=== PATIENT | female | born 1960 | race Caucasian/White ===

== ENCOUNTER 2017-12-23 10:10 | Emergency (ER) | payer SELFPAY ==
[~2017-12-23] VITALS: Ht 157.5 cm; Wt 115.0 kg
[~2017-12-23 10:10] MED LIST: ACET-1600 PO; DIPH25CA61 PO
[2017-12-23 11:36] LABS: ANION GAP 8 mmol/L (5-15); CALCIUM 8.5 mg/dL (8.5-10.1); CHLORIDE 106 mmol/L (98-107); CREATININE 0.72 mg/dL (0.55-1.02)
[2017-12-23 11:37] LABS: ALBUMIN 3.3 g/dL (3.4-5.0)
[2017-12-23 11:40] LABS: BASOPHILS # (AUTO) 0.07 x10^3/uL (0-0.1); BASOPHILS % (AUTO) 1 % (0-1); EOSINOPHILS # (AUTO) 0.24 x10^3/uL (0-0.4); EOSINOPHILS % (AUTO) 2 % (1-7); LYMPHOCYTES # (AUTO) 2.42 x10^3/uL (1-3.4); LYMPHOCYTES % (AUTO) 21 % (22-44); MD NO; MEAN CORPUSCULAR HGB CONC 33.7 g/dL (32.4-35.8); MEAN CORPUSCULAR VOLUME 88.9 fL (80-100); MEAN PLATELET VOLUME 7.2 fL (7.4-10.4); MONOCYTES # (AUTO) 0.38 x10^3/uL (0.2-0.8); MONOCYTES % (AUTO) 3 % (2-9); NEUTROPHILS # (AUTO) 8.45 x10^3/uL (1.8-6.8); NEUTROPHILS % (AUTO) 73 % (42-75); PLATELET COUNT 505 x10^3/uL (130-400); RED BLOOD COUNT 4.89 x10^6/uL (3.82-5.3); RED CELL DISTRIBUTION WIDTH 13.9 % (9.6-15.2); TROPONIN I < 0.015 ng/mL (0.000-0.045)
[2017-12-23 14:11] VITALS: BP 164/83
== END 2017-12-23 14:23 | disposition home or self-care (01) ==
LOC: ED 13:51
DX: R60.0 Localized edema (principal); I50.9 Heart failure, unspecified; J44.9 Chronic obstructive pulmonary disease, unspecified
CPT/HCPCS: 36415; 71045; 80048; 82040; 83880; 84484; 85025; 93005; 99285